=== PATIENT | male | born 1945 | race Caucasian/White ===

== ENCOUNTER 2016-11-30 05:08 | Inpatient (IN) | payer OTHER ==
[2016-11-07 15:02] VITALS: BMI 34.0
--- NOTE | 2016-11-07 15:41 | PAT Medication Instructions ---
Service Date Nov 07, 2016. Current Home Medication List Allopurinol (Zyloprim), 300 MG PO QAM Amlodipine (Norvasc), 5 MG PO QAM Aspirin (Aspirin Chewable), 81 MG PO QAM Atorvastatin (Lipitor), 40 MG PO QPM Isosorbide Dinitrate (Isordil), 30 MG PO QAM Lisinopril (Zestril), 20 MG PO QAM Meloxicam (Mobic), 7.5 MG PO QAM Metoprolol Tartrate (Lopressor) (Lopressor), 25 MG PO QPM Nitroglycerin (Nitroglycerin), 1 TAB SL DIRECTED PRN for Chest Pain Omeprazole (Prilosec), 40 MG PO QAM Ranitidine (Zantac), 150 MG PO QPM Medication Instructions For Your Scheduled Surgery - Check with surgeon for instructions: Meloxicam (Mobic), 7.5 MG PO QAM - Hold the following medications the morning of surgery: Lisinopril (Zestril), 20 MG PO QAM - Take the following medications the morning of surgery with a sip of water: Omeprazole (Prilosec), 40 MG PO QAM Isosorbide Dinitrate (Isordil), 30 MG PO QAM Allopurinol (Zyloprim), 300 MG PO QAM Amlodipine (Norvasc), 5 MG PO QAM Nitroglycerin (Nitroglycerin), 1 TAB SL DIRECTED PRN for Chest Pain (if needed) Aspirin (Aspirin Chewable), 81 MG PO QAM (okay to continue per surgeon) - Take the following medications as scheduled the night before surgery: Ranitidine (Zantac), 150 MG PO QPM Metoprolol Tartrate (Lopressor) (Lopressor), 25 MG PO QPM Atorvastatin (Lipitor), 40 MG PO QPM Nitroglycerin (Nitroglycerin), 1 TAB SL DIRECTED PRN for Chest Pain (if needed) If you have any questions please call us at [phone] (Linsey Monteiro PA-C) or [phone] or [phone]
[2016-11-07 15:59] LABS: BASO % 0.2 %; BASO ABS # 0.02 K/uL (0-0.2); COMPLETE YES; HEMATOCRIT 39.8 % (42-52); IG% 0.2 %; LYMPH % 25.4 %; LYMPH ABS # 2.71 K/uL (1.2-3.4); MEAN CELL VOLUME 94.3 fL (80-100); MEAN CORPUSCULAR HEMOGLOBIN 32.2 pg (25-34); MEAN CORPUSCULAR HGB CONC 34.2 g/dl (32-36); MONO % 6.3 %; NEUT % 66.9 %; PLATELET COUNT 262 K/uL (130-400); RED BLOOD COUNT 4.22 M/uL (4.7-6.1); WHITE BLOOD COUNT 10.65 K/uL (4.8-10.8)
[2016-11-07 16:01] LABS: URINE APPEARANCE CLEAR (CLEAR); URINE BILIRUBIN NEG (NEG); URINE COLOR YELLOW; URINE NITRITE NEG (NEG); URINE SPECIFIC GRAVITY 1.021 (1.000-1.030); UROBILINOGEN NEG (NEG); ZZUR CULT IF INDIC CLEAN CATCH NO
[2016-11-07 16:02] LABS: MANUAL MICROSCOPIC REQUIRED? NO; REVIEW REQ? NO
--- NOTE | 2016-11-07 16:06 | DIAGNOSTIC IMAGING REPORT ---
CHEST 2 VIEWS ROUTINE CLINICAL HISTORY: Preoperative chest COMPARISON STUDY: No previous studies for comparison. FINDINGS: There are postsurgical changes of a midline sternotomy. The heart is at the upper limits of normal in size. There is no failure. There is no focal pulmonary consolidation. There are no pleural effusions.[ IMPRESSION: No active disease in the chest. Electronically signed by: Wyatt Tristan M.D. 11/07/2016 4:04 PM Dictated Date/Time: 11/07/2016 4:03 PM
[2016-11-07 16:08] LABS: PARTIAL THROMBOPLASTIN RATIO 0.9; PROTHROMBIN TIME (PATIENT) 10.3 SECONDS (9.0-12.0)
[2016-11-07 16:16] LABS: ESTIMATED AVERAGE GLUCOSE 128 mg/dl; HA1C FLAG Normal (Normal)
[2016-11-07 16:45] LABS: BUN/CREATININE RATIO 9.7 (10-20); CREATININE 1.1 mg/dl (0.60-1.40); POTASSIUM 4.6 mmol/L (3.5-5.1)
--- NOTE | 2016-11-29 20:50 | HISTORY & PHYSICAL EXAMINATION ---
DATE OF ADMISSION: 11/30/2016 ADMISSION HISTORY AND PHYSICAL CHIEF COMPLAINT: Chronic left hip pain. HISTORY OF PRESENT ILLNESS: This is a 71-year-old male patient of Dr. Knutson'richi complaining of chronic left hip pain, longstanding, now progressively getting worse. The patient has failed conservative treatment including anti-inflammatories. The patient has been diagnosed with end-stage osteoarthritis, per clinical and radiographic exams. He has increased pain with weightbearing activities and his pain does interfere with his activities of daily living. PAST MEDICAL HISTORY: Heart murmur, heart valve problem, hypertension, hypercholesterolemia, sleep apnea, history of a TIA, osteoarthritis, acid reflux, kidney stones, and prostate cancer. SOCIAL HISTORY: He was a lifelong smoker for 20 years, quit in 1989. No alcohol. PAST SURGICAL HISTORY: Carotid endarterectomy, heart bypass x3, kidney stents, heart catheterization, cholecystectomy, EGD scope, colonoscopy, heart stent x2, prostatectomy. ALLERGIES: INCLUDE SULFA. MEDICATIONS: Isosorbide 30 mg 1 tablet q.a.m., atorvastatin 40 mg daily, aspirin 81 mg daily, Nitrostat 0.4 mg sublingual as needed, amlodipine 5 mg daily, allopurinol 300 mg daily, lisinopril 20 mg daily, Prilosec 40 mg daily, Zantac 150 mg b.i.d., metoprolol 25 mg daily, Mobic 7.5 mg daily. PHYSICAL EXAMINATION: GENERAL: Well-developed, well-nourished 71-year-old male in no acute distress. He is alert and oriented x3 and pleasant. HEENT: Normocephalic, atraumatic. Extraocular motions are intact. Pupils are equal and reactive to light. HEART: Irregular heart rate consistent with PVCs. He has bradycardia which is normal. With a 1/5 murmur. LUNGS: Clear. ABDOMEN: Soft and nontender, bowel sounds are present. EXTREMITIES: Left hip reveals passive range of motion with pain. He has no flexion contracture, 5/5 strength in his left lower extremity. NEUROLOGIC: Neurovascularly, he is intact in his left lower extremity. DIAGNOSES: Left hip end-stage osteoarthritis. He has a history of a heart murmur, heart valve issues, hypertension, hypercholesterolemia, irregular heartbeat, sleep apnea, history of a transient ischemic attack, osteoarthritis, acid reflux, kidney stones, prostate cancer. PLAN: The patient was advised of his diagnosis. Indications, risks, benefits, and postop course have all been reviewed. The patient wishes to proceed with left total hip arthroplasty. Necessary consent forms, preoperative testing and clearances will be obtained.
[2016-11-30] VITALS (12 sets, daily range): BP systolic 120–164; BP diastolic 61–94; PULSE 57–85; TEMP 36.3–37.1; O2SAT 92–99; Ht 167.6 cm; Wt 97.3 kg
[~2016-11-30] VITALS: Ht 167.6 cm; Wt 97.3 kg
[~2016-11-30 05:08] MED LIST: ALLO300T2 PO; AMLO-110 PO; ASPCH81X PO; ISR/30 PO; LISI-725 PO; LPT/40 PO; MELO7.5T5 PO; METO25TA56 PO; NITR0.4D6 SL; OMEP40CA41 PO; ZNTT/150 PO
[2016-11-30] MEDS ORDERED: LACTATED RINGER'S 1000ML IV SCH (06:00)
[2016-11-30] MEDS ORDERED: ROPIVACAINE 5MG/ML 30 ML 150 MG, BUPIVACAINE/EPINEPHR 0.5% MPF 30 ML, KETOROLAC TROMETH... INFIL SCH ×6 (06:00)
[2016-11-30] MEDS ORDERED: FAMOTIDINE 20 MG TAB PO SCH (06:00)
[2016-11-30] MEDS ORDERED: GABAPENTIN 300 MG CAP PO SCH (06:00)
[2016-11-30] MEDS ORDERED: DEXAMETHASONE 4 MG TAB PO SCH (06:00)
[2016-11-30] MEDS ORDERED: LACTATED RINGER'S 1000ML 1,000 ML IV SCH (06:00)
[2016-11-30] MEDS ORDERED: METOCLOPRAMIDE HCL 10 MG TAB PO SCH (06:00)
[2016-11-30] MEDS ORDERED: ACETAMINOPHEN 500 MG TAB PO SCH (06:00)
[2016-11-30] MEDS ORDERED: CEFAZOLIN 2000 MG/60 ML D5W 60 ML IV SCH (06:00)
[2016-11-30] MEDS ORDERED: BUPIVACAINE 0.5 % 5 MG/1 ML PF 10ML VIAL ONE (06:26)
[2016-11-30] MEDS ORDERED: POVIDONE-IODINE OP SOLN 30 ML BTL ONE (06:55)
[2016-11-30] MEDS ORDERED: BACITRACIN 50000 UNIT VIAL ONE (06:55)
[2016-11-30] MEDS ORDERED: FENTANYL CITRATE INJ 50 MCG/1 ML 2 ML VIAL ONE (06:55)
[2016-11-30] MEDS ORDERED: MIDAZOLAM HCL 1 MG/ML 2ML VIAL ONE (06:55)
[2016-11-30] MEDS ORDERED: ORTHO JOINT ANESTHETIC ONE (06:55)
--- NOTE | 2016-11-30 07:27 | History & Physical Bridge Note ---
H&P Re-Evaluation Bridge Note: I have examined the patient, reviewed the History & Physical and in the interval since the performance of the History & Physical I have noted the following changes of clinical significance: No changes noted
[2016-11-30] MEDS ORDERED: FENTANYL CITRATE INJ 50 MCG/1 ML 2 ML VIAL IV PRN (08:00)
[2016-11-30] MEDS ORDERED: ONDANSETRON INJ 2 MG/ML 2 ML VIAL IV PRN ×2 (08:00→10:15)
[2016-11-30] MEDS ORDERED: EpHEDrine SULFATE INJ 50 MG/ML AMP IV PRN (08:00)
[2016-11-30] MEDS ORDERED: ATROPINE SULFATE 0.1 MG/ML 5ML SYR IV PRN (08:00)
[2016-11-30] MEDS ORDERED: PHENYLEPHRINE 100MCG/ML 5ML SYR ONE (08:17)
[2016-11-30] MEDS ORDERED: EpHEDrine SULFATE 50MG/5ML SYR ONE (08:17)
[2016-11-30] MEDS ORDERED: LIDOCAINE HCL 2% 2 ML VIAL (20MG/ML) ONE (08:17)
[2016-11-30] MEDS ORDERED: PROPOFOL IV EMULSION 10 MG/ML 20 ML VIAL IV ONE (08:17)
--- NOTE | 2016-11-30 10:07 | [facility] Operative Report ---
Operative Report Operative Date November 30, 2016. Pre-Operative Diagnosis Left hip end-stage osteoarthritis,AVN femoral head with collapse Post-Operative Diagnosis same Procedure(s) Performed left total hip replacement Surgeon Dr. Shane Knutson Early Childhood Special Educator Surgeon(s) Dannie Billingsley PA-C Estimated Blood Loss 75 ML Findings avn with collapse ,synovitis,djd Specimens A. Left femoral head Drains 2 hemovac Anesthesia spinal sedation Complication(s) None Disposition Recovery Room / PACU Indications avn with collapse and djd left hip I attest to the content of the Intraoperative Record and any orders documented therein. Any exceptions are noted below.
[2016-11-30] MEDS ORDERED: ZOLPIDEM TARTRATE 5 MG TAB PO PRN (10:15)
[2016-11-30] MEDS ORDERED: MoRPHine SULFATE 2 MG/ML CARP IV PRN (10:15)
[2016-11-30] MEDS ORDERED: TRAMADOL HCL 50 MG TAB PO PRN (10:15)
[2016-11-30] MEDS ORDERED: OXYCODONE HCL IR 5 MG TAB (IMMEDIATE RELEASE) PO PRN (10:15)
[2016-11-30] MEDS ORDERED: BISACODYL 10 MG SUPP PR PRN (10:15)
[2016-11-30] MEDS ORDERED: SOD PHOSPHATE/SOD BIPHOSPHATE ENEMA 132 ML BTL PR PRN (10:15)
[2016-11-30] MEDS ORDERED: MAGNESIUM HYDROXIDE SUSP 30 ML UDC PO PRN (10:15)
--- NOTE | 2016-11-30 10:44 | OPERATIVE REPORT ---
DATE OF OPERATION: 11/30/2016 INDICATION FOR PROCEDURE: The patient is a 71-year-old male who presents with chronic progressive pain in left hip, failed conservative management. He has an antalgic gait, walks with a cane. 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 This is verified by MRI. He has significant hip synovitis as well. PREOPERATIVE DIAGNOSIS: Avascular necrosis left hip with collapse with degenerative arthritis left hip. POSTOPERATIVE DIAGNOSIS: Same. PROCEDURE: Left total hip arthroplasty. SURGEON: Dr. Knutson. ATHLETIC EVENTS SCORER: Dannie Billingsley PA-C. ANESTHESIA: Spinal and sedation and Orthomix. OPERATION AND FINDINGS: OPERATIVE PROCEDURE: The patient was taken to the operating room and anesthetized under anesthesia as dictated. He was placed supine on the operating room table. He was placed on a sacral pad. He was translated to the left side of the bed, so his hip could be exposed from a lateral approach on the left side. A foot roll was placed to flex his knee 90 degrees and hip 60 degrees. A towel roll was placed to support his lumbar spine. The bed was placed in some Trendelenburg to drain the pelvic veins tilted to the right to help expose acetabular exposure. His left hip was then sterilely prepped and draped in usual sterile fashion using ChloraPrep. Longitudinal incision was made over the lateral left hip. Skin was incised sharply. Subcutaneous tissues were dissected down to the fascia. Fascia alessandra was divided longitudinally and the gluteus alejandra fascia was split proximally. Gluteus medius was intact. The gluteus medius was split between its anterior 40% and posterior 60%. It was split down to the minimus, which was reflected off the inferior capsule. The capsule was divided down to the hip joint which demonstrated synovitic joint. A curvilinear incision was made through the gluteus medius tendon leaving a cuff of tissue for repair on the greater trochanter. Then the vastus lateralis was split for about 3-3.5 cm. Muscular capsular flap was elevated off the hip joint. The hip was dislocated with flexion and external rotation and use of a bone hook. The femoral head was inspected. There was a large area of femoral head collapse on the superior lateral femoral head with clear evidence of AVN. He also had some degenerative changes acetabulum. The femoral neck cut was then made 15 mm proximal to the lesser trochanter in neutral anteversion. We released the anterior capsule and resected some of the thickened capsule around the joint, resected the acetabulum off transverse acetabular ligament and soft tissue in the acetabular fossa. I placed a double angled inferior ischial retractor, a blunt Yolande retractor anteriorly, a self-retaining superior retractor and packed it into the ileum and another sharp Hohmann retractor superiorly. With the acetabulum exposed first I used a 46 mm reamer to ream to the inner table and then went up sequentially commence up to a 54 mm reamer which had good fit and fill. I used the [facility] Trident PSL cup size 54 mm F. After irrigation with antibiotic solution with bacitracin the cup was impacted into position approximating 15 degrees of anteversion and 45 degrees of abduction trying to match the patient's hip version intraoperatively. There was good press fit and 2 additional screws 6.5 x 20 and 30 mm cancellous screws were placed in the posterior superior quadrant for further fixation and rotational control. Then the Trident X3 poly 10-degree 36 mm F liner was impacted into position. Then attention was taken to the femoral preparation. The femur was exposed with flexion and external rotation. A box osteotome was used to open the canal followed by a canal reamer. Then we used sequential broaches up to a size 5, which was what we templated the patient preoperatively. The broach had good fit and fill. We did a 127-degree offset to reproduce his lateral offset of the hip based on preoperative templating. He has a +0 neck length and leg lengths were equal and range of motion was stable through full passive range of motion. Trials were removed and then the canal was irrigated again with antibiotic solution and bacitracin. The final component was the press fit tapered stem Marito Accolade II size 5, 127-degree neck angle with the femoral head being a +0 and 36 mm Biolox ceramic femoral head. First stem was impacted until tight at appropriate length. Then we impacted on the head. This was reduced to the acetabulum. Stability was verified. The Orthomix was then injected into the soft tissues around the hip. The hip was again irrigated with antibiotic solution and bacitracin and we irrigated the hip with Betadine soak. This was diluted Betadine that we used per total joint protocol. The 2 drains were brought out laterally and connected to a Hemovac. Then the gluteus medius was repaired with transosseous #5 FiberWire sutures through the greater trochanter using Jaspal-Vishnu suture technique and lateral row fixation with [id number] #2 FiberWire. The minimus was closed with txqvdv-[id number] #1 Vicryl prior to the medius closure. The split in the medius was closed with [id number]-lk-qgbyw #1 Vicryl sutures. The vastus lateralis was closed with fcdisq-vo-hfhfa #1 Vicryl sutures. The fascia alessandra was closed with pcchqn-bv-tzkhl #1 Vicryl sutures. Subcutaneous tissues closed with interrupted 2-0 Vicryl, skin closed with kishore. A Silverlon dressing was placed and the patient had about 75 mL of blood loss. He tolerated the procedure well. ESTEBAN Linares was my food service assistant and functioned as food service assistant for the entire procedure. He assisted in patient positioning, prepping, draping, soft tissue retraction, instrument management during the replacement and he did perform the subcutaneous skin closure and will participate in postoperative care of the patient. I attest to the content of the Intraoperative Record and any orders documented therein. Any exceptio ns are noted below.
--- NOTE | 2016-11-30 11:08 | DIAGNOSTIC IMAGING REPORT ---
LEFT PELVIS/UNILATERAL HIP 1 VIEW CLINICAL HISTORY: Postop study. COMPARISON STUDY: No previous studies for comparison. FINDINGS: There are postsurgical changes of a total left hip arthroplasty. The acetabular and femoral components appear well seated. There is air within soft tissues consistent with recent surgery. There is an overlying surgical drain. There is a nonspecific lucency within the left femur distal to the femoral spike. This is nonspecific and could represent a preexisting lesion, postsurgical change, or overlying air. IMPRESSION: Postsurgical changes of a total left hip arthroplasty. No acute fractures or dislocations Electronically signed by: Wyatt Tristan M.D. 11/30/2016 11:07 AM Dictated Date/Time: 11/30/2016 11:03 AM
--- NOTE | 2016-11-30 11:29 | Anesthesiology Progress Note ---
Anesthesia Post Op Note Date & Time November 30, 2016 at 11:29 Vital Signs Pain Intensity: 0 Vital Signs Past 12 Hours Date Time Temp Pulse Resp B/P Pulse Ox O2 Delivery O2 Flow Rate FiO2 11/30/16 11:00 78 16 117/51 95 Nasal Cannula 2 11/30/16 10:45 36.9 78 14 128/66 96 Nasal Cannula 2 11/30/16 10:35 82 15 128/60 95 Nasal Cannula 2 11/30/16 10:25 79 16 131/80 94 Nasal Cannula 2 11/30/16 10:15 80 20 133/70 94 Nasal Cannula 2 11/30/16 10:08 36.5 73 16 134/65 97 Nasal Cannula 2 11/30/16 05:29 36.7 57 20 164/94 94 Room Air Notes Mental Status: alert / awake / arousable, participated in evaluation Pt Amnestic to Procedure: Yes Nausea / Vomiting: adequately controlled Pain: adequately controlled Airway Patency, RR, SpO2: stable & adequate BP & HR: stable & adequate Hydration State: stable & adequate Neuraxial Anesthesia: was administered, sensory block is resolving Anesthetic Complications: no major complications apparent
[2016-11-30] MEDS ORDERED: MoRPHine SULFATE 4 MG/ML 1 ML CARP\\VIAL IV PRN (12:00)
[2016-11-30] MEDS: SODIUM CHLORIDE 0.9% 1000ML 1,000 ML IV SCH ×2 (12:18→21:31)
[2016-11-30] MEDS ORDERED: NITROGLYCERIN 0.4 MG SL PER TAB CHARGE SL PRN (13:45)
[2016-11-30] MEDS: ACETAMINOPHEN 500 MG TAB PO SCH ×2 (14:22→21:54)
--- NOTE | 2016-11-30 15:01 | CONSULTATION REPORT ---
DATE OF CONSULTATION: 11/30/2016 PRIMARY CARE PROVIDER: Kami Giordano. CONSULT REQUESTED BY: Dr. Knutson for medical management following left total hip arthroplasty. HISTORY OF PRESENT COMPLAINT: He is a 71-year-old man with significant past medical history including history of NV, aortic valve disease, CAD, history of CHF, hyperlipidemia, hypertension, and obviously osteoarthritis. Apparently has been complaining of left hip pain for a while. He has had prior evaluation for proposed hip surgery and he underwent left hip replacement today by Dr. Knutson. Following surgery, he does not have any pain. He has been getting pain medications. He does not have any chest pain, shortness of breath, palpitation. Denies to have any abdominal pain, nausea, vomiting. Denies to have any numbness or tingling in the extremities or any weakness involving any side. No fever or chills. PAST MEDICAL HISTORY: Significant for history of NV, CAD, history of CHF, CA prostate, hyperlipidemia, hypertension, and also aortic valve disease. PAST SURGICAL HISTORY: Significant for carotid endarterectomy, carotid stent placement on both sides in 2010, cholecystectomy, coronary angioplasty with stent in 2008, surgery for kidney stone, and cardiac cath, last one in 2010. FAMILY HISTORY: Significant in that father of heart attack. Brother had a stroke, coronary artery disease, and also another brother had heart attack. SOCIAL HISTORY: He is and lives with his spouse. He is a former smoker, quit in 1988, and he drinks alcohol occasionally and he is reasonably ambulant. ALLERGIES: TO SULFA ANTIBIOTICS. MEDICATIONS: As an outpatient, he has aspirin 81 mg daily, Mobic 7.5 mg daily, Zantac 150 mg daily, Prilosec 40 mg in the morning, allopurinol 300 mg daily, amlodipine 5 mg daily, Lipitor 40 mg daily, isosorbide 30 mg daily, Zestril 20 mg daily, Lopressor 25 mg daily, and nitroglycerin as needed. REVIEW OF SYSTEMS: Other systems reviewed unremarkable except those mentioned in history of present complaint. PHYSICAL EXAMINATION: GENERAL: On examination on the medical floor, he was not having any acute distress. VITAL SIGNS: Temperature 37.1, pulse of 76, blood pressure 152/74, saturation 96% on 2 liters nasal cannula. HEENT: Unremarkable. NECK: Supple. No JVD, no bruit. CHEST: Clear to auscultation bilaterally. HEART: S1, S2, regular. ABDOMEN: Soft, benign, nontender, no organomegaly. Bowel sounds present. EXTREMITIES: Negative for any edema. CENTRAL NERVOUS SYSTEM: Alert, awake, oriented x3. LABORATORY DATA: From 11/07/2016, CBC, PRP, PT/INR, EKG, chest x-ray and also Lexiscan noted in the chart, and he will have blood test tomorrow. IMPRESSION AND PLAN: 1. Status post left hip arthroplasty. Management will be as per ortho. The patient does not have any acute pain at this time. 2. Coronary artery disease, status post remote stent placement, remains asymptomatic. Continue with current medications including aspirin as soon as possible. 3. History of congestive heart failure. Does not take any furosemide and seems to be compensated. No acute symptoms. 4. Hypertension. Blood pressure seems to be upper side of normal. Continue with current medication. 5. Hyperlipidemia. Continue with statin. 6. Gastrointestinal prophylaxis with omeprazole. 7. Deep venous thrombosis prophylaxis as per ortho. Thank you for this consultation. I will be following this patient with you during this hospitalization. The patient will be followed up by Dr. Lambert. SAUMYA
[2016-11-30] MEDS: CEFAZOLIN IV 2,000 MG in DEXTROSE 5% 50ML 50 ML IV SCH ×2 (15:42→23:57)
[2016-11-30] MEDS: OXYCODONE HCL 10 MG TABCR (OXYCONTIN) PO SCH ×2 (19:21→21:54)
[2016-11-30] MEDS: DOCUSATE SODIUM 100 MG CAP PO SCH (21:29)
[2016-11-30] MEDS: ATORVASTATIN 40 MG TAB PO SCH (21:30)
[2016-11-30] MEDS: ASPIRIN 81 MG ECTAB PO SCH (21:30)
[2016-11-30] MEDS: METOPROLOL TARTRATE 25 MG TAB PO SCH (21:30)
[2016-12-01] VITALS (7 sets, daily range): BP systolic 127–162; BP diastolic 57–75; PULSE 51–60; TEMP 36.4–36.8; O2SAT 93–96
[2016-12-01 06:09] LABS: COMPLETE YES; HEMATOCRIT 30.3 % (42-52); IG% 0.4 %; LYMPH ABS # 1.17 K/uL (1.2-3.4); MEAN CELL VOLUME 92.9 fL (80-100); MEAN CORPUSCULAR HEMOGLOBIN 31.3 pg (25-34); MEAN CORPUSCULAR HGB CONC 33.7 g/dl (32-36); MEAN PLATELET VOLUME 9.5 fL (7.4-10.4); MONO % 3.2 %; NEUT % 90.4 %; PLATELET COUNT 214 K/uL (130-400); RED BLOOD COUNT 3.26 M/uL (4.7-6.1)
[2016-12-01] MEDS: SODIUM CHLORIDE 0.9% 1000ML 1,000 ML IV SCH (06:12)
[2016-12-01] MEDS: ACETAMINOPHEN 500 MG TAB PO SCH ×3 (06:12→21:42)
[2016-12-01 06:44] LABS: BUN/CREATININE RATIO 15.5 (10-20); CALCIUM 8.6 mg/dl (8.5-10.1); CREATININE 1.2 mg/dl (0.60-1.40); POTASSIUM 4.4 mmol/L (3.5-5.1)
--- NOTE | 2016-12-01 08:07 | Anesthesiology Progress Note ---
Anesthesia Post Op Note Date & Time December 01, 2016 at 08:07 Vital Signs Pain Intensity: 0.0 Vital Signs Past 12 Hours Date Time Temp Pulse Resp B/P Pulse Ox O2 Delivery O2 Flow Rate FiO2 12/01/16 03:23 36.4 54 18 148/75 94 Room Air 11/30/16 22:45 36.3 70 17 122/65 92 Room Air 11/30/16 21:25 78 149/71 Notes Mental Status: alert / awake / arousable, participated in evaluation Anesthetic Complications: no major complications apparent
--- NOTE | 2016-12-01 08:31 | Orthopedic Progress Note ---
Orthopedic Progress Note Date of Service December 01, 2016. Subjective Post OP Day: 1 Reports: feeling well, pain controlled w PO medications, Denies: SOB, calf pain , chest pain, complaints, light headedness, nausea / vomiting Objective calves soft nontender, N/V intact, hip located, capillary refill less than 2 sec., dressing C/D/I, A&O x3, toes mobile Siverlon in tact. Date Time Temp Pulse Resp B/P Pulse Ox O2 Delivery O2 Flow Rate FiO2 12/01/16 03:23 36.4 54 18 148/75 94 Room Air 11/30/16 22:45 36.3 70 17 122/65 92 Room Air 11/30/16 21:25 78 149/71 11/30/16 19:32 36.5 70 18 153/68 94 Room Air 11/30/16 19:30 Room Air 11/30/16 18:39 Nasal Cannula 2.0 11/30/16 16:43 97 Room Air 11/30/16 15:24 36.5 73 18 120/76 98 Room Air 11/30/16 14:25 65 16 144/84 99 Nasal Cannula 2.0 11/30/16 14:22 36.4 85 17 142/79 95 Nasal Cannula 2.0 11/30/16 13:25 66 18 132/61 96 11/30/16 12:25 76 18 152/74 96 Nasal Cannula 2.0 11/30/16 11:55 37.1 83 16 146/69 94 Nasal Cannula 2.0 11/30/16 11:25 36.6 73 16 127/70 95 Nasal Cannula 2.0 11/30/16 11:25 95 Nasal Cannula 2.0 11/30/16 11:00 78 16 117/51 95 Nasal Cannula 2 11/30/16 10:45 36.9 78 14 128/66 96 Nasal Cannula 2 11/30/16 10:35 82 15 128/60 95 Nasal Cannula 2 11/30/16 10:25 79 16 131/80 94 Nasal Cannula 2 11/30/16 10:15 80 20 133/70 94 Nasal Cannula 2 11/30/16 10:08 36.5 73 16 134/65 97 Nasal Cannula 2 Laboratory Results 24 Hours: Test 12/01/16 05:20 White Blood Count 19.50 K/uL Red Blood Count 3.26 M/uL Hemoglobin 10.2 g/dL Hematocrit 30.3 % Mean Corpuscular Volume 92.9 fL Mean Corpuscular Hemoglobin 31.3 pg Mean Corpuscular Hemoglobin Concent 33.7 g/dl Platelet Count 214 K/uL Mean Platelet Volume 9.5 fL Neutrophils (%) (Auto) 90.4 % Lymphocytes (%) (Auto) 6.0 % Monocytes (%) (Auto) 3.2 % Eosinophils (%) (Auto) 0.0 % Basophils (%) (Auto) 0.0 % Neutrophils # (Auto) 17.63 K/uL Lymphocytes # (Auto) 1.17 K/uL Monocytes # (Auto) 0.63 K/uL Eosinophils # (Auto) 0.00 K/uL Basophils # (Auto) 0.00 K/uL Assessment & Plan Assessment: POD #1, Left MARCELO Plan: PT/ OT DVT proph- ASA D/C planning- Home w HH likely Sat. As per medicine. Inhouse Planning Pain Management: Oxycontin, Ultram, Morphine, PO Tylenol, Oxy IR DVT Prophylaxis: TEDs, SCDs, ASA Discharge Planning Discharge Planning: home with home health Pain Management: Oxycontin, PO Tylenol, Oxy IR DVT Prophylaxis: TEDs, ASA Therapy: Physical Therapy
--- NOTE | 2016-12-01 08:33 | Discharge Instructions ---
Discharge Instructions Date of Service December 01, 2016. Admission Reason for Admission: Left Hip Degenerative Joint Disease and Avascualr Discharge Discharge Diagnosis / Problem: Left MARCELO Discharge Goals Goal(s): Improve function Activity Recommendations Activity Limitations: as noted below . Instructions / Follow-Up Instructions / Follow-Up ACTIVITY RECOMMENDATIONS: SELF CARE INSTRUCTIONS AFTER TOTAL HIP REPLACEMENT Until the incision and soft tissues around your hip have healed, there is a possibility that the hip prosthesis could dislocate. A. Observe the following precautions to prevent dislocation: 1. Don't bend your hip greater than 90 degrees. 2. Avoid crossing your legs or ankles while standing or lying. 3. Sit with your feet placed 6 inches apart. 4. When sitting, keep your knees below your hips. Sit on a firm surface, avoid deep, soft chairs and couches. Use an elevated toilet seat in the bathroom. 5. Don't bend over at the waist. Use a long handled shoehorn and a sock aid to help you put on your shoes and socks. A glass beveler can help you product picker objects that are too high or too low to reach. 6. Keep car riding to a minimum for at least one month after surgery. B. Your balance may be shaky for a while. Use crutches or a walker until directed by your doctor. C. Use hand rails when walking on stairs. D. Wear low heeled shoes with non-slip soles. E. Be sure that your floors are free of things that could trip you - throw rugs , electrical cords, small objects. Avoid wet and waxed floors, especially with crutches and canes. F. Try to walk several times a day with rest periods between. G. Continue with all the exercises taught to you in the hospital. Again, make walking a part of your daily routine. SPECIAL CARE INSTRUCTIONS: VERY IMPORTANT TO READ AND REVIEW A. You may still be at risk for phlebitis and blood clots. 1. Wear surgical stockings (TYE hose) for 2 weeks after surgery to improve circulation and reduce swelling. 2. Take Aspirin 81mg twice daily for 4 weeks or as directed by your doctor. This is your blood thinner. 3. High risk patients may be prescribed a stronger blood thinner if necessary. 4. If you are on Coumadin normally, your family doctor/mechanical fitter should monitor your blood work. Expect a phone call the day of or the day after bloodwork is drawn to adjust your dosage. B. You must take antibiotics before having dental work, bladder, bowel and other surgery. Your doctor will provide you with a permanent card to carry describing precautions. C. Call [facility] if you have a fever, redness or swelling around the incision, cloudy drainage from incision, or sudden increase in pain in your hip, not relieved by your regular pain medication. D. Please call the office at if you have any concerns or questions about your operation or recovery. * YOU MAY SHOWER, NO TUB BATHS UNTIL CLEARED BY YOUR DOCTOR. * WEAR TYE HOSE 20 HOURS PER DAY FOR 2 WEEKS. * YOU SHOULD USE A WALKER OR CRUTCHES FOR 2-4 WEEKS. THIS WILL HELP PREVENT STRAIN ON YOUR HIP MUSCLE AND ALLOW IT TO HEAL PROPERLY. YOU MAY WEAN TO A CANE TOLERATED. * MOST PATIENTS WILL HAVE HOME NURSING FOR THERAPY. IF YOU DECIDE TO DO OUTPATIENT PHYSICAL THERAPY, PLEASE SCHEDULE THIS 3 TIMES PER WEEK. * YOU MAY HAVE A LARGE, BAND-RAHEEL LIKE DRESSING (SILVERON). THIS WILL REMAIN ON YOUR INCISION FOR 7 DAYS, THEN CAN BE REMOVED. IF INCISION IS LEAKING THROUGH DRESSING, PLEASE CALL THE OFFICE . FOLLOW UP VISIT: If appointment is not already scheduled: Please call [facility] to make a follow-up appointment for 2 weeks after your surgery at . Current Hospital Diet Patient's current hospital diet: AHA Diet (Heart Healthy) Discharge Diet Recommended Diet: Regular Diet Procedures Procedures Performed: Left Total Hip Arthroplasty, Uncemented Pending Studies Studies pending at discharge: no Laboratory Results Hemoglobin A1c Test 11/07/16 15:35 Range/Units Estimated Average Glucose 128 mg/dl Hemoglobin A1c 6.1 H 4.5-5.6 % Medical Emergencies . Who to Call and When: Medical Emergencies: If at any time you feel your situation is an emergency, please call 911 immediately. . Non-Emergent Contact Non-Emergency issues call your: Primary Care Provider . "Provider Documentation" section prepared by Dannie Billingsley. . VTE Core Measure Inpt VTE Proph given/why not?: Other Anticoagulation (asa), T.E.DFanny Davis, SCD's [place] Drug Monitoring Program Search Results: patient reviewed within database, no issues identified
[2016-12-01] MEDS: AMLODIPINE BESYLATE 5 MG TAB PO SCH (09:15)
[2016-12-01] MEDS: PANTOprazole SOD 40 MG TAB PO SCH (09:15)
[2016-12-01] MEDS: ALLOPURINOL 300 MG TAB PO SCH (09:15)
[2016-12-01] MEDS: MULTIVITAMIN TAB PO SCH (09:16)
[2016-12-01] MEDS: LISINOPRIL 20 MG TAB PO SCH (09:16)
[2016-12-01] MEDS: DOCUSATE SODIUM 100 MG CAP PO SCH ×2 (09:16→20:28)
[2016-12-01] MEDS: ISOSORBIDE MONONITRATE 30 MG TABCR PO SCH (09:16)
[2016-12-01] MEDS: ASPIRIN 81 MG ECTAB PO SCH ×2 (09:16→20:28)
[2016-12-01] MEDS: OXYCODONE HCL 10 MG TABCR (OXYCONTIN) PO SCH ×2 (10:21→21:42)
[2016-12-01] MEDS: ATORVASTATIN 40 MG TAB PO SCH (20:28)
[2016-12-01] MEDS: METOPROLOL TARTRATE 25 MG TAB PO SCH (20:28)
--- NOTE | 2016-12-01 20:48 | Progress Note ---
Medicine Progress Note Date & Time of Visit: December 01, 2016 at 20:48. Subjective delayed entry date of service as noted above seen sitting up in bed, smiling, comfortable no chest pain, dyspnea, dizziness, palpitations no problems with ambulation states he feels well overall no other symptoms Objective Last 8 Hrs Date Time Temp Pulse Resp B/P Pulse Ox O2 Delivery O2 Flow Rate FiO2 12/01/16 20:25 51 152/70 12/01/16 15:06 36.4 53 18 136/57 96 Room Air Physical Exam: General- oriented x 3, not in distress, speaks in sentences with no effort Head- atraumatic Eyes- EOMI, anicteric ENT- oropharynx clear Neck- supple, no JVD, no adenopathy, no thyromegaly; no bruits appreciated Lungs- clear to auscultation b/l Heart- bradycardia 50s, regular rhythm; no murmur Abdomen- normal bowel sounds, soft, nontender Extremities- no pretibial edema, no calf tenderness; peripheral pulses intact Neuro- alert, oriented x 3; no gross focal deficits Skin- warm & dry Laboratory Results: Last 24 Hours Test 12/01/16 05:20 White Blood Count 19.50 K/uL Red Blood Count 3.26 M/uL Hemoglobin 10.2 g/dL Hematocrit 30.3 % Mean Corpuscular Volume 92.9 fL Mean Corpuscular Hemoglobin 31.3 pg Mean Corpuscular Hemoglobin Concent 33.7 g/dl Platelet Count 214 K/uL Mean Platelet Volume 9.5 fL Neutrophils (%) (Auto) 90.4 % Lymphocytes (%) (Auto) 6.0 % Monocytes (%) (Auto) 3.2 % Eosinophils (%) (Auto) 0.0 % Basophils (%) (Auto) 0.0 % Neutrophils # (Auto) 17.63 K/uL Lymphocytes # (Auto) 1.17 K/uL Monocytes # (Auto) 0.63 K/uL Eosinophils # (Auto) 0.00 K/uL Basophils # (Auto) 0.00 K/uL RDW Standard Deviation 47.0 fL RDW Coefficient of Variation 13.9 % Immature Granulocyte % (Auto) 0.4 % Immature Granulocyte # (Auto) 0.07 K/uL Sodium Level 140 mmol/L Potassium Level 4.4 mmol/L Chloride Level 109 mmol/L Carbon Dioxide Level 23 mmol/L Anion Gap 8.0 mmol/L Blood Urea Nitrogen 19 mg/dl Creatinine 1.20 mg/dl Est Creatinine Clear Calc Drug Dose 62.5 ml/min Estimated GFR () 70.6 Estimated GFR (Non- 60.9 BUN/Creatinine Ratio 15.5 Random Glucose 132 mg/dl Calcium Level 8.6 mg/dl Assessment & Plan IMPRESSION AND PLAN: 1. Status post left hip arthroplasty. - doing well overall - monitor Hg 2. Coronary artery disease, status post remote stent placement - EKG sinus andrea asymptomatic - continue usual medications including Aspirin 3. History of congestive heart failure. euvolemic 4. Hypertension. stable overall continue usual medications 5. Hyperlipidemia. Continue with statin. 6. Gastrointestinal prophylaxis with omeprazole. 7. Deep venous thrombosis prophylaxis as per ortho. Thank you for this consultation. We will follow the patient with you during their hospital stay. You can reach a member of [facility] 12/02 via pager @ [phone]. Current Inpatient Medications: Current Inpatient Medications Medications (Trade) Dose Ordered Sig/Ngoc Route Start Time Stop Time Status Last Admin Dose Admin Allopurinol (Zyloprim Tab) 300 mg QAM PO 12/01/16 09:00 12/31/16 08:59 12/01/16 09:15 300 MG Amlodipine Besylate (Norvasc Tab) 5 mg QAM PO 12/01/16 09:00 12/31/16 08:59 12/01/16 09:15 5 MG Atorvastatin Calcium (Lipitor Tab) 40 mg QPM PO 11/30/16 21:00 12/30/16 20:59 12/01/16 20:28 40 MG Lisinopril (Zestril Tab) 20 mg QAM PO 12/01/16 09:00 12/31/16 08:59 12/01/16 09:16 20 MG Metoprolol Tartrate (Lopressor Tab) 25 mg QPM PO 11/30/16 21:00 12/30/16 20:59 11/30/16 21:30 25 MG Nitroglycerin (Nitrostat Tab) 0.4 mg UD PRN SL 11/30/16 13:45 12/30/16 13:44 Isosorbide Mononitrate (Imdur Ext Rel Tab) 30 mg QAM PO 12/01/16 09:00 12/31/16 08:59 12/01/16 09:16 30 MG Oxycodone HCl (Roxicodone Immediate Rel Tab) 1 TABLET FOR PAIN RATING... Q4H PRN PO 11/30/16 10:15 12/14/16 10:14 Morphine Sulfate (MoRPHine SULFATE INJ) 2 mg Q2H PRN IV 11/30/16 10:15 12/14/16 10:14 Acetaminophen (Tylenol Tab) 1,000 mg Q8H PO 11/30/16 14:00 12/30/16 10:14 12/01/16 13:41 1,000 MG Magnesium Hydroxide (Milk Of Magnesia Susp) 30 ml Q6H PRN PO 11/30/16 10:15 12/30/16 10:14 Bisacodyl (Dulcolax Supp) 10 mg DAILY PRN [place] 11/30/16 10:15 12/30/16 10:14 Sodium Biphosphate/ Sodium Phosphate (Fleet Enema) 132 ml DAILY PRN [place] 11/30/16 10:15 12/30/16 10:14 Docusate Sodium (coLACE CAP) 100 mg BID PO 11/30/16 21:00 12/30/16 20:59 12/01/16 20:28 100 MG Diphenhydramine HCl (Benadryl Cap) 25 mg Q8H PRN PO 11/30/16 10:15 12/30/16 10:14 Zolpidem Tartrate (Ambien Tab) 5 mg HSZ PRN PO 11/30/16 10:15 12/30/16 10:14 Multivitamins (Multivitamin Tab) 1 tab QAM PO 12/01/16 09:00 12/31/16 08:59 12/01/16 09:16 1 TAB Ondansetron HCl (Zofran Inj) 4 mg Q6H PRN IV 11/30/16 10:15 12/30/16 10:14 Pantoprazole Sodium (Protonix Tab) 40 mg QAM PO 12/01/16 09:00 12/31/16 08:59 12/01/16 09:15 40 MG Tramadol HCl (Ultram Tab) 1 TABLET FOR PAIN RATING... Q4H PRN PO 11/30/16 10:15 6/10/17 10:14 Oxycodone HCl (Oxycontin Tab) 10 mg Q12H PO 11/30/16 10:15 12/14/16 10:14 12/01/16 10:21 10 MG Aspirin (Ecotrin Tab) 81 mg BID PO 11/30/16 21:00 12/30/16 20:59 12/01/16 20:28 81 MG Morphine Sulfate (MoRPHine SULFATE INJ) 4 mg Q2H PRN IV 11/30/16 12:00 12/14/16 11:59
[2016-12-02] MEDS: ACETAMINOPHEN 500 MG TAB PO SCH (05:49)
[2016-12-02 06:03] LABS: BASO % 0.1 %; BASO ABS # 0.01 K/uL (0-0.2); COMPLETE YES; EOS % 0.4 %; IG% 0.3 %; LYMPH % 16.4 %; LYMPH ABS # 2.67 K/uL (1.2-3.4); MEAN CELL VOLUME 94.8 fL (80-100); MEAN CORPUSCULAR HEMOGLOBIN 31.7 pg (25-34); MEAN CORPUSCULAR HGB CONC 33.4 g/dl (32-36); MEAN PLATELET VOLUME 9.4 fL (7.4-10.4); MONO % 7.4 %; NEUT % 75.4 %; PLATELET COUNT 202 K/uL (130-400); RED BLOOD COUNT 3.06 M/uL (4.7-6.1); WHITE BLOOD COUNT 16.32 K/uL (4.8-10.8)
--- NOTE | 2016-12-02 06:14 | Orthopedic Progress Note ---
Orthopedic Progress Note Date of Service December 02, 2016. Subjective Post OP Day: 2 Reports: feeling well, pain controlled w PO medications, Denies: SOB, calf pain , chest pain, complaints, light headedness, nausea / vomiting Objective calves soft nontender, N/V intact, hip located, capillary refill less than 2 sec., dressing C/D/I, A&O x3, toes mobile Date Time Temp Pulse Resp B/P Pulse Ox O2 Delivery O2 Flow Rate FiO2 12/01/16 23:00 36.4 60 18 131/66 94 Room Air 12/01/16 20:25 51 152/70 12/01/16 19:45 Room Air 12/01/16 15:06 36.4 53 18 136/57 96 Room Air 12/01/16 12:08 36.5 54 18 162/75 95 Room Air 12/01/16 10:58 60 93 12/01/16 09:08 36.8 60 18 127/68 94 Room Air 12/01/16 08:10 Room Air Laboratory Results 24 Hours: Test 12/02/16 05:16 White Blood Count 16.32 K/uL Red Blood Count 3.06 M/uL Hemoglobin 9.7 g/dL Hematocrit 29.0 % Mean Corpuscular Volume 94.8 fL Mean Corpuscular Hemoglobin 31.7 pg Mean Corpuscular Hemoglobin Concent 33.4 g/dl Platelet Count 202 K/uL Mean Platelet Volume 9.4 fL Neutrophils (%) (Auto) 75.4 % Lymphocytes (%) (Auto) 16.4 % Monocytes (%) (Auto) 7.4 % Eosinophils (%) (Auto) 0.4 % Basophils (%) (Auto) 0.1 % Neutrophils # (Auto) 12.33 K/uL Lymphocytes # (Auto) 2.67 K/uL Monocytes # (Auto) 1.20 K/uL Eosinophils # (Auto) 0.06 K/uL Basophils # (Auto) 0.01 K/uL Assessment & Plan Assessment: POD #2, Left MARCELO Plan: PT/ OT DVT proph- ASA D/C planning- Home w HH likely after PT today As per medicine. Discharge Planning Discharge Planning: home with home health Pain Management: Oxycontin, PO Tylenol, Oxy IR DVT Prophylaxis: TEDs, ASA Therapy: Physical Therapy
[2016-12-02] MEDS ORDERED: RXC5 PO (06:17)
[2016-12-02] MEDS ORDERED: ACET-1138 PO (06:17)
[2016-12-02] MEDS ORDERED: ONDA8TAB6 PO (06:17)
[2016-12-02] MEDS ORDERED: OXYSR10 PO (06:17)
[2016-12-02] MEDS ORDERED: ASPEC81 PO (06:17)
[2016-12-02 06:32] LABS: BUN/CREATININE RATIO 21.7 (10-20); CALCIUM 8.7 mg/dl (8.5-10.1); CREATININE 1.1 mg/dl (0.60-1.40); POTASSIUM 4.2 mmol/L (3.5-5.1)
[2016-12-02 06:45] VITALS: BP 151/74; PULSE 91; TEMP 36.4; O2SAT 92
[2016-12-02] MEDS: PANTOprazole SOD 40 MG TAB PO SCH (09:52)
[2016-12-02] MEDS: OXYCODONE HCL 10 MG TABCR (OXYCONTIN) PO SCH (09:52)
[2016-12-02] MEDS: MULTIVITAMIN TAB PO SCH (09:53)
[2016-12-02] MEDS: AMLODIPINE BESYLATE 5 MG TAB PO SCH (09:53)
[2016-12-02] MEDS: ASPIRIN 81 MG ECTAB PO SCH (09:53)
[2016-12-02] MEDS: ALLOPURINOL 300 MG TAB PO SCH (09:53)
[2016-12-02] MEDS: DOCUSATE SODIUM 100 MG CAP PO SCH (09:54)
[2016-12-02] MEDS: LISINOPRIL 20 MG TAB PO SCH (09:54)
[2016-12-02] MEDS: ISOSORBIDE MONONITRATE 30 MG TABCR PO SCH (09:54)
[2016-12-02 10:36] VITALS: BP 151/74; PULSE 91; TEMP 36.4; O2SAT 92
--- NOTE | 2016-12-02 11:51 | Progress Note ---
Medicine Progress Note Date & Time of Visit: December 02, 2016 at 11:49. Subjective patient seen sitting up in bed, comfortable states he continues to feel well denies dyspnea, chest pain, dizziness, nausea no problems with ambulation states he is ready and would like to be discharged today Objective Last 8 Hrs Date Time Temp Pulse Resp B/P Pulse Ox O2 Delivery O2 Flow Rate FiO2 12/02/16 10:36 36.4 91 20 92 Room Air 12/02/16 06:45 36.4 91 20 151/74 92 Room Air Physical Exam: General- oriented x 3, not in distress, speaks in sentences with no effort Eyes- anicteric Neck- supple, no JVD Lungs- clear no rales/wheezes b/l Heart- normal rate, regular rhythm; no murmur Abdomen- normal bowel sounds, soft, nontender Extremities- no pretibial edema, no calf tenderness Neuro- alert, oriented x 3; no gross focal deficits Skin- warm & dry Laboratory Results: Last 24 Hours Test 12/02/16 05:16 White Blood Count 16.32 K/uL Red Blood Count 3.06 M/uL Hemoglobin 9.7 g/dL Hematocrit 29.0 % Mean Corpuscular Volume 94.8 fL Mean Corpuscular Hemoglobin 31.7 pg Mean Corpuscular Hemoglobin Concent 33.4 g/dl Platelet Count 202 K/uL Mean Platelet Volume 9.4 fL Neutrophils (%) (Auto) 75.4 % Lymphocytes (%) (Auto) 16.4 % Monocytes (%) (Auto) 7.4 % Eosinophils (%) (Auto) 0.4 % Basophils (%) (Auto) 0.1 % Neutrophils # (Auto) 12.33 K/uL Lymphocytes # (Auto) 2.67 K/uL Monocytes # (Auto) 1.20 K/uL Eosinophils # (Auto) 0.06 K/uL Basophils # (Auto) 0.01 K/uL RDW Standard Deviation 49.7 fL RDW Coefficient of Variation 14.4 % Immature Granulocyte % (Auto) 0.3 % Immature Granulocyte # (Auto) 0.05 K/uL Sodium Level 141 mmol/L Potassium Level 4.2 mmol/L Chloride Level 110 mmol/L Carbon Dioxide Level 26 mmol/L Anion Gap 5.0 mmol/L Blood Urea Nitrogen 24 mg/dl Creatinine 1.10 mg/dl Est Creatinine Clear Calc Drug Dose 68.2 ml/min Estimated GFR () 78.4 Estimated GFR (Non- 67.7 BUN/Creatinine Ratio 21.7 Random Glucose 114 mg/dl Calcium Level 8.7 mg/dl Assessment & Plan IMPRESSION AND PLAN: 1. Status post left hip arthroplasty. - Hg decreased to 9 asymptomatic advised to ff up PCP in 1 week, repeat CBC In 1 week report to PCP if with anemia symptoms, discussed with patient 2. Coronary artery disease, status post remote stent placement - EKG sinus andrea asymptomatic - HR improved no symptoms - continue usual medications including Aspirin 3. History of congestive heart failure. - euvolemic 4. Hypertension. stable overall continue usual medications ff up with PCP 5. Hyperlipidemia. Continue with statin. 6. Gastrointestinal prophylaxis with omeprazole. 7. Deep venous thrombosis prophylaxis as per ortho. Thank you for this consultation. We will follow the patient with you during their hospital stay. You can reach a member of the [facility] 12/02 via pager @ . Current Inpatient Medications: Current Inpatient Medications Medications (Trade) Dose Ordered Sig/Ngoc Route Start Time Stop Time Status Last Admin Dose Admin Allopurinol (Zyloprim Tab) 300 mg QAM PO 12/01/16 09:00 12/31/16 08:59 12/02/16 09:53 300 MG Amlodipine Besylate (Norvasc Tab) 5 mg QAM PO 12/01/16 09:00 12/31/16 08:59 12/02/16 09:53 5 MG Atorvastatin Calcium (Lipitor Tab) 40 mg QPM PO 11/30/16 21:00 12/30/16 20:59 12/01/16 20:28 40 MG Lisinopril (Zestril Tab) 20 mg QAM PO 12/01/16 09:00 12/31/16 08:59 12/02/16 09:54 20 MG Metoprolol Tartrate (Lopressor Tab) 25 mg QPM PO 11/30/16 21:00 12/30/16 20:59 11/30/16 21:30 25 MG Nitroglycerin (Nitrostat Tab) 0.4 mg UD PRN SL 11/30/16 13:45 12/30/16 13:44 Isosorbide Mononitrate (Imdur Ext Rel Tab) 30 mg QAM PO 12/01/16 09:00 12/31/16 08:59 12/02/16 09:54 30 MG Oxycodone HCl (Roxicodone Immediate Rel Tab) 1 TABLET FOR PAIN RATING... Q4H PRN PO 11/30/16 10:15 12/14/16 10:14 Morphine Sulfate (MoRPHine SULFATE INJ) 2 mg Q2H PRN IV 11/30/16 10:15 12/14/16 10:14 Acetaminophen (Tylenol Tab) 1,000 mg Q8H PO 11/30/16 14:00 12/30/16 10:14 12/02/16 05:49 1,000 MG Magnesium Hydroxide (Milk Of Magnesia Susp) 30 ml Q6H PRN PO 11/30/16 10:15 12/30/16 10:14 Bisacodyl (Dulcolax Supp) 10 mg DAILY PRN [place] 11/30/16 10:15 12/30/16 10:14 Sodium Biphosphate/ Sodium Phosphate (Fleet Enema) 132 ml DAILY PRN [place] 11/30/16 10:15 12/30/16 10:14 Docusate Sodium (coLACE CAP) 100 mg BID PO 11/30/16 21:00 12/30/16 20:59 12/02/16 09:54 100 MG Diphenhydramine HCl (Benadryl Cap) 25 mg Q8H PRN PO 11/30/16 10:15 12/30/16 10:14 Zolpidem Tartrate (Ambien Tab) 5 mg HSZ PRN PO 11/30/16 10:15 12/30/16 10:14 Multivitamins (Multivitamin Tab) 1 tab QAM PO 12/01/16 09:00 12/31/16 08:59 12/02/16 09:53 1 TAB Ondansetron HCl (Zofran Inj) 4 mg Q6H PRN IV 11/30/16 10:15 12/30/16 10:14 Pantoprazole Sodium (Protonix Tab) 40 mg QAM PO 12/01/16 09:00 12/31/16 08:59 12/02/16 09:52 40 MG Tramadol HCl (Ultram Tab) 1 TABLET FOR PAIN RATING... Q4H PRN PO 11/30/16 10:15 12/30/16 10:14 Oxycodone HCl (Oxycontin Tab) 10 mg Q12H PO 11/30/16 10:15 12/14/16 10:14 12/02/16 09:52 10 MG Aspirin (Ecotrin Tab) 81 mg BID PO 11/30/16 21:00 12/30/16 20:59 12/02/16 09:53 81 MG Morphine Sulfate (MoRPHine SULFATE INJ) 4 mg Q2H PRN IV 11/30/16 12:00 12/14/16 11:59
--- NOTE | 2016-12-15 13:39 | DISCHARGE SUMMARY ---
HISTORY OF PRESENT ILLNESS: This is a 71-year-old male patient of Dr. Knutson'rihci complaining of chronic left hip pain, longstanding, progressively getting worse. The patient failed conservative treatment and elected to proceed with a left total hip arthroplasty. PAST MEDICAL HISTORY: Heart murmur, heart valve problem, hypertension, hypercholesterolemia, sleep apnea, history of TIA, osteoarthritis, acid reflux, history of kidney stones and prostate cancer. POSTOPERATIVE COURSE: The patient underwent a left total hip arthroplasty on 11/30/2016. He was followed closely with medical consultation, physical therapy, pain control and DVT prophylaxis in the form of aspirin. The patient did very well postoperatively and was discharged on postoperative day #2. PHYSICAL EXAMINATION ON DISCHARGE: EXTREMITIES: Left hip - Silverlon dressing was clean, dry and intact. There was no redness or drainage. He had no calf tenderness. Negative Homans sign. NEUROLOGIC: Neurovascularly intact in his left lower extremity. DIAGNOSES: Status post left total hip arthroplasty with a history of heart murmur, heart valve problem, hypertension, hypercholesterolemia, sleep apnea, history of transient ischemic attack, osteoarthritis, acid reflux, kidney stones. PLAN: The patient was discharged home on postoperative day #2 with home health services. He will continue his preadmission medications with the addition of pain medications. He will continue on aspirin twice daily for DVT prophylaxis and follow up as scheduled as an outpatient.
[2017-04-18] MEDS ORDERED: ASPI81TA28 PO (13:11)
[2017-04-18] MEDS ORDERED: MELO7.5T7 PO (13:11)
== END 2016-12-02 12:00 | disposition home health service (06) | DRG 470 ==
LOC: ENRESERVTM → ENRESERVDT → C.ACU 05:08 → C.3E 07:15
PROVIDERS: ADMIT Orthopaedic Surgery Sports Medicine; ATTEND Orthopaedic Surgery Sports Medicine
PROC: 0SRB03A Replacement of Left Hip Joint with Ceramic Synthetic Substitute, Uncemented, Open Approach (ICD-10-PCS; principal; 2016-11-30 07:15)
DX: M16.12 Unilateral primary osteoarthritis, left hip (principal); M87.052 Idiopathic aseptic necrosis of left femur; I10 Essential (primary) hypertension; E78.5 Hyperlipidemia, unspecified; G47.30 Sleep apnea, unspecified; Z86.73 Personal history of transient ischemic attack (TIA), and cerebral infarction without residual deficits; K21.9 Gastro-esophageal reflux disease without esophagitis; I25.10 Atherosclerotic heart disease of native coronary artery without angina pectoris; Z95.5 Presence of coronary angioplasty implant and graft; Z79.899 Other long term (current) drug therapy

== ENCOUNTER → 2017-05-03 | Day surgery (SDC) | payer OTHER ==
[2017-04-18 13:12] VITALS: Ht 168.9 cm; Wt 95.5 kg
[~2017-05-03] VITALS: Ht 168.9 cm; Wt 95.5 kg
[~2017-05-03] MED LIST changes: +500ML BSS 0.3ML EPI 1:1000PF IRRIG ONE; +ACETAMINOPHEN 325 MG TAB PO PRN; +AMVISC PLUS 0.8ML SYRINGE INT OCU ONE; -ASPCH81X PO; +ASPI81TA28 PO; +ATROPINE SULFATE 0.1 MG/ML 5ML SYR IV PRN; +BSS FLUSH ONE; +EpHEDrine SULFATE INJ 50 MG/ML AMP IV PRN; +EpINEphrine INJ 1MG/ML AMP 1 MG/ML AMP ONE; +ISOS30TA51 PO; -ISR/30 PO; +LACTATED RINGER'S 1000ML 500 ML IV SCH; +LIDOCAINE 3.5% OPH GEL PER APPLICATION CHARGE ONE; +LIDOCAINE HCL 1% MPF 2 ML VIAL ONE; -MELO7.5T5 PO; +MELO7.5T7 PO; +MIDAZOLAM HCL 1 MG/ML 2ML VIAL ONE; +OCUCOAT 1 ML SOLN IO ONE; +PHENYLEPHRINE HCL 10% OP SOLN PER DROP CHARGE OPR SCH; +POVIDONE-IODINE OP SOLN 30 ML BTL ONE; +PROPARACAINE 0.5% OP SOLN PER DROP CHARGE OPR SCH; +TOBRAMYCIN/DEXAMETHASONE OPH OINT PER APPLN CHARGE ONE
[2017-05-03] MEDS: PHENYLEPHRINE HCL 2.5% OP SOLN PER DROP CHARGE OPR SCH ×2 (07:44→07:50)
[2017-05-03] MEDS: TROPICAMIDE 1% OP SOLN PER DROP CHARGE OPR SCH ×2 (07:45→07:51)
[2017-05-03] MEDS: CYCLOPENTOLATE HCL 1% OP SOLN PER DROP CHARGE OPR SCH ×2 (07:46→07:53)
[2017-05-03] MEDS: KETOROLAC 0.5% OP SOLN PER DROP CHARGE OPR SCH ×2 (07:48→07:54)
[2017-05-03] MEDS: GATIFLOXACIN OP SOLN PER DROP CHARGE OPR SCH ×2 (07:49→08:04)
--- NOTE | 2017-05-03 08:31 | Discharge Instructions-SurgCtr ---
Discharge Instructions Date of Service May 03, 2017. Visit Reason for Visit: Cataract Right Eye Discharge Discharge Diagnosis / Problem: cataract Discharge Goals Goal(s): Improve function Activity Recommendations Activity Limitations: per Instructions/Follow-up section Anesthesia . Post Anesthesia Instructions: If you have had General Anesthesia or IV Sedation: * Do not drive today. * Resume driving when surgeon permits. * Do not make important decisions or sign legal documents today. * Call surgeon for: 1. Temperature elevations greater than 101 degrees F. 2. Uncontrollable pain. 3. Excessive bleeding. 4. Persistent nausea and vomiting. 5. Medication intolerance (nausea, vomiting or rash). * For nausea and vomiting use only clear liquids such as: tea, soda, bouillon until nausea subsides, then gradually increase diet as tolerated. * If you have any concerns or questions, call your surgeon's office. If physician is unavailable and it is an emergency, call 911 or go to the nearest emergency room. . Diet Recommendations Home Diet: resume previous diet Procedures Procedures Performed: Right Cataract Phacoemulsification With Intraocular Lens Implant Pending Studies Studies pending at discharge: no Medical Emergencies . Who to Call and When: Medical Emergencies: If at any time you feel your situation is an emergency, please call 911 immediately. . Non-Emergent Contact Non-Emergency issues call your: Asset Coordinator . . "Provider Documentation" section prepared by Brendan Gutierrez. .
--- NOTE | 2017-05-03 08:31 | [facility] Operative Report ---
Operative Report Date of Service May 03, 2017. Operative Report 1. PREOPERATIVE DIAGNOSIS: Cataract of the right eye. 2. POSTOPERATIVE DIAGNOSIS: Same. 3. PROCEDURE: Phacoemulsification with intraocular lens implantation of the right eye. SURGEON: Dr. Brendan Gutierrez. ANESTHESIA: Topical Lidocaine gel, 1% Non- Preserved intracameral Lidocaine, and monitored intravenous sedation. INDICATIONS FOR THE PROCEDURE: The patient is a 71 - year-old male with a history of cataract of the right eye causing significant visual impairment. The details of the proposed procedure were explained to the patient who asked appropriate questions and following discussion of all risks, benefits and alternatives agreed to have the procedure done. 4. OPERATION AND FINDINGS: DESCRIPTION OF PROCEDURE: After informed consent was obtained, the patient was brought to the Operating Room at the [facility]. The patient was placed in a supine position and then the right eye was prepped and draped in the usual sterile fashion for intraocular surgery. A drop of topical Lidocaine gel was placed in the operative eye. A wire lid speculum was then placed in the fornices. A corneal paracentesis was then created temporally. The Non-Preserved Lidocaine was then instilled into the anterior chamber. The anterior chamber was then pressurized with viscoelastic. A 2.0 mm clear corneal incision was then created temporally. A cystotome was inserted into the anterior chamber and used to create a tear in the anterior lens capsule. This capsular tear was then used to create a small flap and the flap was dragged in a counterclockwise direction in order to create a continuous curvilinear capsulorrhexis. Hydrodissection was accomplished with balanced salt solution. Phacoemulsification of the lens nucleus was then performed in a standard [id number] technique. The phaco time was 30 seconds with an average power of 14 %. The remaining cortical material was removed using irrigation aspiration. The capsular bag was then filled with viscoelastic. A [employer] MI60L +20.5 diopters lens was then loaded into the injector and injected into the capsular bag. The remaining viscoelastic was removed with the irrigation aspiration handpiece. The wound was hydrated and then checked and found to be watertight. The intraocular pressure was checked and found to be adequate. The wire lid speculum was removed and the patient's face was cleaned and dried. TobraDex ointment was placed in the inferior fornix. The patient was discharged to the Recovery Room having tolerated the procedure well. There were no complications. The patient will be seen tomorrow in the office for follow-up. I attest to the content of the Intraoperative Record and any orders documented therein. Any exceptions are noted below.
[2017-05-03 08:35] VITALS: TEMP 36.4
[2017-05-03 08:54] VITALS: BP 132/71; PULSE 65; O2SAT 96
--- NOTE | 2017-05-03 09:07 | Anesthesia Progress Nt - [facility] ---
Anesthesia Post Op Note Date & Time May 03, 2017 at 09:07 Vital Signs Pain Intensity: 0 Vital Signs Past 12 Hours Date Time Temp Pulse Resp B/P (MAP) Pulse Ox O2 Delivery O2 Flow Rate FiO2 05/03/17 08:54 65 16 132/71 (91) 96 Room Air 05/03/17 08:35 36.4 60 16 144/77 (99) 94 Room Air 05/03/17 07:34 36.7 72 16 165/78 (107) 95 Room Air Notes Mental Status: alert / awake / arousable, participated in evaluation Pt Amnestic to Procedure: Yes Nausea / Vomiting: adequately controlled Pain: adequately controlled Airway Patency, RR, SpO2: stable & adequate BP & HR: stable & adequate Hydration State: stable & adequate Anesthetic Complications: no major complications apparent
== END | disposition home or self-care (01) ==
LOC: X.SURG 06:59
PROVIDERS: ATTEND Ophthalmology
DX: H26.9 Unspecified cataract (principal); I25.9 Chronic ischemic heart disease, unspecified; I49.3 Ventricular premature depolarization; I65.29 Occlusion and stenosis of unspecified carotid artery; I10 Essential (primary) hypertension; E78.00 Pure hypercholesterolemia, unspecified; K21.9 Gastro-esophageal reflux disease without esophagitis; N40.0 Benign prostatic hyperplasia without lower urinary tract symptoms; F41.9 Anxiety disorder, unspecified; I73.9 Peripheral vascular disease, unspecified; K58.9 Irritable bowel syndrome, unspecified; Z87.891 Personal history of nicotine dependence; Z79.82 Long term (current) use of aspirin; Z79.899 Other long term (current) drug therapy

== ENCOUNTER → 2017-06-05 | Day surgery (SDC) | payer OTHER ==
[2017-05-10 11:13] VITALS: Ht 168.9 cm; Wt 95.5 kg
[~2017-06-05] VITALS: Ht 168.9 cm; Wt 95.5 kg
[~2017-06-05] MED LIST changes: -ISOS30TA51 PO; +ISR/30 PO; -OCUCOAT 1 ML SOLN IO ONE; +PHENYLEPHRINE HCL 10% OP SOLN PER DROP CHARGE OPL SCH; -PHENYLEPHRINE HCL 10% OP SOLN PER DROP CHARGE OPR SCH; +PROPARACAINE 0.5% OP SOLN PER DROP CHARGE OPL SCH; -PROPARACAINE 0.5% OP SOLN PER DROP CHARGE OPR SCH
[2017-06-05] MEDS: PHENYLEPHRINE HCL 2.5% OP SOLN PER DROP CHARGE OPL SCH ×2 (09:07→09:12)
[2017-06-05] MEDS: TROPICAMIDE 1% OP SOLN PER DROP CHARGE OPL SCH ×2 (09:08→09:13)
[2017-06-05] MEDS: CYCLOPENTOLATE HCL 1% OP SOLN PER DROP CHARGE OPL SCH ×2 (09:09→09:14)
[2017-06-05] MEDS: KETOROLAC 0.5% OP SOLN PER DROP CHARGE OPL SCH ×2 (09:10→09:15)
[2017-06-05] MEDS: GATIFLOXACIN OP SOLN PER DROP CHARGE OPL SCH ×2 (09:11→09:21)
--- NOTE | 2017-06-05 10:25 | Discharge Instructions-[facility] ---
Discharge Instructions Date of Service Jun 05, 2017. Visit Reason for Visit: Cataract Left Eye Discharge Discharge Diagnosis / Problem: cataract Discharge Goals Goal(s): Improve function Activity Recommendations Activity Limitations: per Instructions/Follow-up section Anesthesia . Post Anesthesia Instructions: If you have had General Anesthesia or IV Sedation: * Do not drive today. * Resume driving when surgeon permits. * Do not make important decisions or sign legal documents today. * Call surgeon for: 1. Temperature elevations greater than 101 degrees F. 2. Uncontrollable pain. 3. Excessive bleeding. 4. Persistent nausea and vomiting. 5. Medication intolerance (nausea, vomiting or rash). * For nausea and vomiting use only clear liquids such as: tea, soda, bouillon until nausea subsides, then gradually increase diet as tolerated. * If you have any concerns or questions, call your surgeon's office. If physician is unavailable and it is an emergency, call 911 or go to the nearest emergency room. . Diet Recommendations Home Diet: resume previous diet Procedures Procedures Performed: Left Cataract Phacoemulsification With Intraocular Lens Implant Pending Studies Studies pending at discharge: no Medical Emergencies . Who to Call and When: Medical Emergencies: If at any time you feel your situation is an emergency, please call 911 immediately. . Non-Emergent Contact Non-Emergency issues call your: Tomography Technologist . . "Provider Documentation" section prepared by Brendan Gutierrez. .
--- NOTE | 2017-06-05 10:26 | [facility] Operative Report ---
Operative Report Date of Service Jun 05, 2017. Operative Report 1. PREOPERATIVE DIAGNOSIS: Cataract of the left eye. 2. POSTOPERATIVE DIAGNOSIS: Same. 3. PROCEDURE: Phacoemulsification with intraocular lens implantation of the left eye. SURGEON: Dr. Brendan Gutierrez. ANESTHESIA: Topical Lidocaine gel, 1% Non- Preserved intracameral Lidocaine, and monitored intravenous sedation. INDICATIONS FOR THE PROCEDURE: The patient is a 71 - year-old male with a history of cataract of the left eye causing significant visual impairment. The details of the proposed procedure were explained to the patient who asked appropriate questions and following discussion of all risks, benefits and alternatives agreed to have the procedure done. 4. OPERATION AND FINDINGS: DESCRIPTION OF PROCEDURE: After informed consent was obtained, the patient was brought to the Operating Room at the [facility]. The patient was placed in a supine position and then the left eye was prepped and draped in the usual sterile fashion for intraocular surgery. A drop of topical Lidocaine gel was placed in the operative eye. A wire lid speculum was then placed in the fornices. A corneal paracentesis was then created temporally. The Non-Preserved Lidocaine was then instilled into the anterior chamber. The anterior chamber was then pressurized with viscoelastic. A 2.0 mm clear corneal incision was then created temporally. A cystotome was inserted into the anterior chamber and used to create a tear in the anterior lens capsule. This capsular tear was then used to create a small flap and the flap was dragged in a counterclockwise direction in order to create a continuous curvilinear capsulorrhexis. Hydrodissection was accomplished with balanced salt solution. Phacoemulsification of the lens nucleus was then performed in a standard [id number] technique. The phaco time was 27 seconds with an average power of 19 %. The remaining cortical material was removed using irrigation aspiration. The capsular bag was then filled with viscoelastic. A [employer] MI60L +19.0 diopters lens was then loaded into the injector and injected into the capsular bag. The remaining viscoelastic was removed with the irrigation aspiration handpiece. The wound was hydrated and then checked and found to be watertight. The intraocular pressure was checked and found to be adequate. The wire lid speculum was removed and the patient's face was cleaned and dried. TobraDex ointment was placed in the inferior fornix. The patient was discharged to the Recovery Room having tolerated the procedure well. There were no complications. The patient will be seen tomorrow in the office for follow-up. I attest to the content of the Intraoperative Record and any orders documented therein. Any exceptions are noted below.
[2017-06-05 10:28] VITALS: TEMP 36.7
--- NOTE | 2017-06-05 10:42 | Anesthesia Progress Nt - [facility] ---
Anesthesia Post Op Note Date & Time Jun 05, 2017 at 10:42 Vital Signs Pain Intensity: 0 Vital Signs Past 12 Hours Date Time Temp Pulse Resp B/P (MAP) Pulse Ox O2 Delivery O2 Flow Rate FiO2 06/05/17 10:28 36.7 58 16 137/67 (90) 95 Room Air 06/05/17 09:03 36.4 73 18 166/98 (120) 96 Room Air Notes Mental Status: alert / awake / arousable, participated in evaluation Pt Amnestic to Procedure: Yes Nausea / Vomiting: adequately controlled Pain: adequately controlled Airway Patency, RR, SpO2: stable & adequate BP & HR: stable & adequate Hydration State: stable & adequate Anesthetic Complications: no major complications apparent
[2017-06-05 10:54] VITALS: BP 144/81; PULSE 64; O2SAT 96
== END | disposition home or self-care (01) ==
LOC: X.SURG 08:53
PROVIDERS: ATTEND Ophthalmology
DX: H25.9 Unspecified age-related cataract (principal); I10 Essential (primary) hypertension; F41.9 Anxiety disorder, unspecified; I25.9 Chronic ischemic heart disease, unspecified; I73.9 Peripheral vascular disease, unspecified; E78.00 Pure hypercholesterolemia, unspecified